=== PATIENT | male | born 1945 | race Caucasian/White ===

== ENCOUNTER 2016-02-07 02:41 | Emergency (ER) | payer MEDICARE, OTHER ==
--- NOTE | 2016-02-07 04:57 | RAD ---
History: Worsening cough. Comparison: None. Technique: 2 views Findings: The soft tissue and bony structures are unremarkable. The heart size is appropriate. No infiltrate, effusion or pneumothorax is observed. The hilar and mediastinal structures are normal. Impression: 1. No active intra-thoracic disease.
== END 2016-02-07 04:15 | disposition home or self-care (01) ==
LOC: ED 02:41
DX: J06.9 Acute upper respiratory infection, unspecified (principal)